=== PATIENT | female | born 1995 | race Caucasian/White ===

== ENCOUNTER 2018-11-06 21:48 | Emergency (ER) | payer BC ==
[~2018-11-06] VITALS: Ht 162.6 cm; Wt 125.6 kg
[2018-11-06 22:06] VITALS: BP 124/70
[2018-11-06 22:33] VITALS: BP 124/70
== END 2018-11-06 23:12 | disposition home or self-care (01) ==
LOC: MED 21:48
DX: S80.861A Insect bite (nonvenomous), right lower leg, initial encounter (principal); L03.115 Cellulitis of right lower limb; W57.XXXA Bitten or stung by nonvenomous insect and other nonvenomous arthropods, initial encounter; Y92.89 Other specified places as the place of occurrence of the external cause; Y93.89 Activity, other specified; Y99.8 Other external cause status
CPT/HCPCS: 99283